=== PATIENT | female | born 1950 | race Caucasian/White ===

== ENCOUNTER 2017-02-24 12:38 | Emergency (ER) | payer MEDICARE ==
[2017-02-24] MEDS ORDERED: NORMAL SALINE 1000 ML 1,000 ML IV ONE ×2 (13:15→16:02)
--- NOTE | 2017-02-24 13:17 | ER Document Report ---
ED Medical Screen (RME) - General Chief Complaint: Flank Pain Stated Complaint: RIGHT SIDE PAIN Time Seen by Provider: 02/24/17 13:15 Notes: Patient presents with several days of severe right-sided flank and right upper quadrant abdominal pain. She states the pain is also in the right lower lateral chest. She has had some cough and shortness of breath. She is not a smoker. She has had no vomiting or diarrhea but has had decreased appetite. She has had a tubal ligation and a hysterectomy. She states that she had a fever of 104 at home. TRAVEL OUTSIDE OF THE [place] IN LAST 30 DAYS: No - Related Data Allergies/Adverse Reactions: No Known Allergies Allergy (Unverified 02/24/17 13:09) Past Medical History Renal/ Medical History: Denies: Hx Peritoneal Dialysis Physical Exam - Vital signs Vitals: Temp Pulse Resp BP Pulse Ox 98.9 F 145 H 24 H 116/81 93 02/24/17 13:05 02/24/17 13:05 02/24/17 13:05 02/24/17 13:05 02/24/17 13:05 Course - Vital Signs Vital signs: Temp Pulse Resp BP Pulse Ox 98.9 F 145 H 24 H 116/81 93 02/24/17 13:05 02/24/17 13:05 02/24/17 13:05 02/24/17 13:05 02/24/17 13:05
--- NOTE | 2017-02-24 14:15 | ER Document Report ---
ED GI/ - General Chief Complaint: Flank Pain Stated Complaint: RIGHT SIDE PAIN Time Seen by Provider: 02/24/17 13:15 Notes: The patient is a 66-year-old female who presents with 2 days of right flank pain and right upper quadrant abdominal pain. She is also having painful urination and fever up to 103 at home. She denies chest pain, shortness of breath, cough, rash, nausea, vomiting, diarrhea, constipation or hematuria. TRAVEL OUTSIDE OF THE [place] IN LAST 30 DAYS: No - Related Data Allergies/Adverse Reactions: No Known Allergies Allergy (Unverified 02/24/17 13:09) Past Medical History - General Information source: Patient - Social History Smoking Status: Unknown if Ever Smoked Family History: Reviewed & Not Pertinent Patient has suicidal ideation: No Patient has homicidal ideation: No Renal/ Medical History: Denies: Hx Peritoneal Dialysis Review of Systems - Review of Systems Notes: REVIEW OF SYSTEMS: CONSTITUTIONAL: +fevers, -chills EENT: -eye pain, -difficulty swallowing, -nasal congestion CARDIOVASCULAR: -chest pain, -syncope. RESPIRATORY: -cough, -SOB GASTROINTESTINAL: +RUQ abdominal pain, -nausea, -vomiting, -diarrhea GENITOURINARY: +dysuria, -hematuria MUSCULOSKELETAL: +right flank pain, -neck pain SKIN: -rash or skin lesions. HEMATOLOGIC: -easy bruising or bleeding. LYMPHATIC: -swollen, enlarged glands. NEUROLOGICAL: -altered mental status or loss of consciousness, -headache, - neurologic symptoms PSYCHIATRIC: -anxiety, -depression. ALL OTHER SYSTEMS REVIEWED AND NEGATIVE. Physical Exam - Vital signs Vitals: Temp Pulse Resp BP Pulse Ox 98.9 F 145 H 24 H 116/81 93 02/24/17 13:05 02/24/17 13:05 02/24/17 13:05 02/24/17 13:05 02/24/17 13:05 - Notes Notes: PHYSICAL EXAMINATION: GENERAL: Well-appearing, well-nourished and in no acute distress. HEAD: Atraumatic, normocephalic. EYES: Pupils equal round and reactive to light, extraocular movements intact, sclera anicteric, conjunctiva are normal. ENT: nares patent, oropharynx clear without exudates. Moist mucous membranes. NECK: Normal range of motion, supple without lymphadenopathy LUNGS: Breath sounds clear to auscultation bilaterally and equal. No wheezes rales or rhonchi. HEART: Tachycardia. Regular rhythm. ABDOMEN: Soft, mild RUQ tenderness, normoactive bowel sounds. No guarding, no rebound. No masses appreciated. BACK: Right CVA tenderness. EXTREMITIES: Normal range of motion, no pitting or edema. No cyanosis. NEUROLOGICAL: Cranial nerves grossly intact. Normal speech, normal gait. Normal sensory and motor exams. PSYCH: Normal mood, normal affect. SKIN: Warm, Dry, normal turgor, no rashes or lesions noted. Course - Re-evaluation Re-evalutation: 02/24/17 15:47 Pt has evidence of pyelonephritis and has RUQ tenderness. US shows dilation of the CBD and a positive sonographic Bingham sign. Spoke to Dr. Ashton and he will be down to evaluate patient. 02/24/17 16:00: Dr. Ashton evaluated patient and does not suspect gallbladder disease. Patient has normal LFTs. Suspect that her symptoms are more related to the pyelonephritis. After antibiotics, pain control and IV fluids, patient feels much better and her heart rate improved to the 90s. Lactate is normal. Offered patient admission for continued IV antibiotics, but she feels much better and is requesting discharge. Will send home with Keflex, pain control, nausea control and very strict return precautions. She understands. - Vital Signs Vital signs: Temp Pulse Resp BP Pulse Ox 98.9 F 145 H 16 98/62 L 94 02/24/17 13:05 02/24/17 13:05 02/24/17 19:00 02/24/17 18:01 02/24/17 18:01 - Laboratory Result Diagrams: 02/24/17 14:09 02/24/17 14:09 Laboratory results interpreted by me: 02/24/17 02/24/17 02/24/17 13:50 14:09 14:09 WBC 13.2 H RDW 14.3 H Seg Neuts % (Manual) 82 H Band Neutrophils % 2 L Lymphocytes % (Manual) 6 L Abs Neuts (Manual) 11.1 H Sodium 134.9 L Potassium 3.3 L BUN 37 H Est GFR ( Amer) 52 L Est GFR (Non-Af Amer) 43 L Glucose 121 H Albumin 3.3 L Urine Protein 30 H Urine Blood SMALL H Urine Nitrite POSITIVE H Ur Leukocyte Esterase LARGE H - Diagnostic Test Radiology reviewed: Image reviewed, Reports reviewed Radiology results interpreted by me: SHANTAL US: 1. There is dilatation of the common bile duct and prominence of the distal pancreatic duct within the head of the pancreas. There does not appear to be significant intrahepatic ductal dilatation. Correlate for biliary obstruction. 2. There is a positive sonographic Bingham sign, but there are no gallstones in the is no thickening of gallbladder wall or other evidence of cholecystitis. Discharge - Discharge Clinical Impression: Pyelonephritis Condition: Stable Disposition: HOME, SELF-CARE Additional Instructions: PYELONEPHRITIS: Your evaluation shows evidence of pyelonephritis. This is an infection in the kidney. Typical symptoms are fever, pain in the flank, pain on urination, and frequent urination. Many cases of pyelonephritis can be treated at home. Hospital care may be necessary for patients who are very ill, or elderly or . Pyelonephritis is treated with antibiotics. Be sure to take all the medication as prescribed. Drink plenty of liquids (about three quarts per day) . You may take acetaminophen for fever. You should feel significantly improved within two days. You should have a recheck of your urine in about one week to insure that the infection is gone. Return for a re-examination if your symptoms worsen in any way -- such as high fever, shaking chills, severe weakness or dizziness, severe pain, or inability to pass your urine. PAIN MEDICATION INJECTION: You have received an injection of a pain medication. You should experience significant pain relief within 45 minutes. This drug is a narcotic - - it will impair your judgement, slow your reaction time and make you sleepy ( as well as relieve your pain). Narcotics also can cause nausea. You should not drive, work with machinery, or perform any task requiring mental alertness until all effects of the medication are gone -- six to eight hours. Do not take any alcohol, or sedatives, and do not take any other medication without checking with your physician. ANTINAUSEA MEDICATION: You have been given a medication to suppress nausea and vomiting. This type of medication can be given as a shot, pill, or suppository. It will usually last for many hours. Pills and shots usually last six to eight hours, suppositories last about 12 hours. For the typical illness, only one or two doses of the medication may be necessary. Mild lightheadedness may occur. This type of medicine can cause drowsiness. Do not drive or operate dangerous machinery while under its influence. Do not mix with alcohol. See your doctor at once if you have muscle spasms or tightness, or uncontrollable motions (particularly of the neck, mouth, or jaw). Persistent vomiting or severe lightheadedness should also be evaluated by the physician. ANTIBIOTIC THERAPY: You have been given an antibiotic prescription. It's important that you take all the medication, unless instructed otherwise by your physician. Failure to complete the entire course can result in relapse of your condition. Common side effects of antibiotics include nausea, intestinal cramping, or diarrhea. Women may develop vaginal yeast infections, and babies can get yeast (thrush) in the mouth following the use of antibiotics. Contact your physician if you develop significant side effects from this medication. Allergy to this antibiotic can result in hives, wheezing, faintness, or itching. If symptoms of allergy occur, stop the medication and call the doctor. ROCEPHIN: You have been given an injection of an antibiotic called Rocephin ( ceftriaxone). Sometimes the injection must be combined with antibiotic pills. For some infections, such as an uncomplicated ear infection, Rocephin provides all the antibiotic that's needed. The antibiotic will be in your body for about two days. For serious infections, we usually repeat doses of Rocephin daily. Side effects are very unusual following a shot. Women may develop vaginal yeast infections, and babies can get yeast (thrush) in the mouth following the use of antibiotics. Contact your physician if you have symptoms with this medication. Allergy to this antibiotic can result in hives, wheezing, faintness, or itching. If symptoms of allergy occur, call the doctor at once. CEPHALEXIN: The antibiotic you've been prescribed is a member of the cephalosporin class. This type of antibiotic covers a wide variety of infections, including those of the skin, lungs, and urinary tract. It's useful for staph infections. This antibiotic is slightly similar to the penicillin family. In rare cases , a person who is allergic to penicillin will also be allergic to this medication. If you have had a severe allergic reaction to penicillin, and have not taken this antibiotic since that time, notify your doctor. Antibiotics which cover many germs ("broad spectrum" antibiotics) are more likely to cause diarrhea or "yeast" infections. Women prone to vaginal yeast problems may suffer an attack after taking this antibiotic. In infants, oral thrush (white spots "stuck" on the cheek) or yeast diaper rash may result. See your doctor if these problems occur. Call at once if you develop itching, hives , shortness of breath, or lightheadedness. USE OF ACETAMINOPHEN (Tylenol): Acetaminophen may be taken for pain relief or fever control. It's much safer than aspirin, offering a wider range of "safe" dosages. It is safe during . Some brand names are Tylenol, Panadol, Datril, Anacin 3, Tempra, and Liquiprin. Acetaminophen can be repeated every four hours. The following are maximum recommended dosages: >89 pounds or adults 650 mg to 900 mg Acetaminophen can be repeated every four hours. Maximum dose not to exceed 4000 mg a day. ORAL NARCOTIC MEDICATION: You have been given a prescription for pain control. This medication is a narcotic. It's best taken with food, as nausea can result if taken on an empty stomach. Don't operate machinery or drive within six hours of taking this medication. Do not combine this medicine with alcohol, or with any medication which can cause sedation (such as cold tablets or sleeping pills) unless you get permission from the physician. Narcotics tend to cause constipation. If possible, drink plenty of fluids and eat a diet high in fiber and fruits. Please be aware that prescription narcotics also have the potential for abuse. People become addicted to these medications because of the general sense of wellbeing that they induce. This feeling along with a significant reduction in tension, anxiety, and aggression provides a stimulating seductive quality to these drugs. Once your pain is under control, we encourage you to discard your unused narcotics. FOLLOW-UP CARE: If you have been referred to a physician for follow-up care, call the physician s office for an appointment as you were instructed or within the next two days. If you experience worsening or a significant change in your symptoms, notify the physician immediately or return to the Emergency Department at any time for re-evaluation. Prescriptions: Cephalexin Monohydrate [Keflex 500 mg Capsule] 500 mg PO TID 10 Days capsule Hydrocodone/Acetaminophen [[place] 5-325 mg Tablet] 1 tab PO Q6H PRN #15 tablet PRN Reason: Ondansetron [Zofran Odt 4 mg Tablet] 1 - 2 tab PO Q4H PRN #15 tab.rapdis PRN Reason: For Nausea/Vomiting
[2017-02-24 14:24] LABS: APPEARANCE,URINE SLIGHTLY-CLOUDY; BILIRUBIN,URINE NEGATIVE (NEGATIVE); GLUCOSE, URINE NEGATIVE (NEGATIVE); KETONES,URINE NEGATIVE (NEGATIVE); LEUKOCYTE ESTERASE,URINE LARGE (NEGATIVE); NITRITE,URINE POSITIVE (NEGATIVE); PROTEIN,URINE 30 mg/dL (NEGATIVE); URINE SPECIFIC GRAVITY 1.008; UROBILINOGEN,URINE NEGATIVE mg/dL (<2.0)
[2017-02-24] MEDS ORDERED: MORPHINE SULFATE 10 MG/ML INJ IV ONE ×2 (14:25→16:02)
[2017-02-24 14:31] LABS: HEMATOCRIT 40.4 % (36.0-47.0); HEMOGLOBIN 13.9 g/dL (12.0-15.5); HGB HCT DIFFERENCE 1.3; MEAN CORPUSCULAR HEMOGLOBIN 30.3 pg (27.0-33.4); MEAN CORPUSCULAR HGB CONC 34.4 g/dL (32.0-36.0); MEAN CORPUSCULAR VOLUME 88 fl (80-97); RED BLOOD COUNT 4.59 10^6/uL (3.72-5.28); RED CELL DISTRIBUTION WIDTH 14.3 % (11.5-14.0); WHITE BLOOD COUNT 13.2 10^3/uL (4.0-10.5)
[2017-02-24 14:32] LABS: PROTHROMBIN TIME 15.2 SEC (11.4-15.4)
[2017-02-24] MEDS ORDERED: CEFTRIAXONE 1 GM/D5W RTU 1 GM/50 ML RTUPB IV ONE (14:40)
[2017-02-24 14:46] LABS: ALANINE AMINOTRANSFERASE 27 U/L (9-52); ALBUMIN 3.3 g/dL (3.5-5.0); ALKALINE PHOSPHATASE 99 U/L (38-126); ANION GAP 12 (5-19); ASPARTATE AMINO TRANSFERASE 23 U/L (14-36); BILIRUBIN,DIRECT 0.4 mg/dL (0.0-0.4); BILIRUBIN,TOTAL 0.8 mg/dL (0.2-1.3); BLOOD UREA NITROGEN 37 mg/dL (7-20); CALCIUM 9.5 mg/dL (8.4-10.2); CARBON DIOXIDE 25 mmol/L (22-30); CHLORIDE 98 mmol/L (98-107); CREATININE RESULT 1.25 mg/dL (0.52-1.25); GLUCOSE 121 mg/dL (75-110); POTASSIUM 3.3 mmol/L (3.6-5.0); SODIUM 134.9 mmol/L (137-145); TOTAL PROTEIN 6.5 g/dL (6.3-8.2)
[2017-02-24 15:03] LABS: BAND NEUTROPHILS % (MANUAL) 2 % (3-5); BASOPHILS % (MANUAL) 0 % (0-2); EOSINOPHILS % (MANUAL) 0 % (0-6); LYMPHOCYTES % (MANUAL) 6 % (13-45); TOTAL CELLS COUNTED 100
[2017-02-24 15:04] LABS: ANISOCYTOSIS SLIGHT; TOXIC GRANULATION 1+
--- NOTE | 2017-02-24 15:24 | RADIOLOGY REPORT (SQ) ---
EXAM DESCRIPTION: U/S ABDOMEN LIMITED W/O DOP COMPLETED DATE/TIME: 02/24/2017 3:07 pm REASON FOR STUDY: RUQ pain COMPARISON: None. TECHNIQUE: Dynamic and static grayscale images acquired of the abdomen and recorded on PACS. Additio nal selected color Doppler and spectral images recorded. LIMITATIONS: None. FINDINGS: PANCREAS: No masses. The pancreatic duct within the head of the pancreas measures 3.1 mm which is in the normal range. LIVER: 13.7 cm. Normal echotexture. LIVER VASCULATURE: Normal directional flow of the main portal vein and hepatic veins. GALLBLADDER: No stones. Normal wall thickness. No pericholecystic fluid. ULTRASOUND-DETECTED BINGHAM'S SIGN: Positive. INTRAHEPATIC DUCTS AND COMMON DUCT: Common bile duct is dilated at 9.5 mm. There is not appear to be significant dilatation of the intrahepatic ducts. INFERIOR VENA CAVA: Normal flow. AORTA: No aneurysm. RIGHT KIDNEY: Normal size, 9.9 cm. Normal echogenicity. No solid or suspicious masses. No hydronephr osis. No calcifications. PERITONEAL AND RIGHT PLEURAL SPACE: No ascites or effusions. OTHER: No other significant findings. IMPRESSION: 1. There is dilatation of the common bile duct and prominence of the distal pancreatic duct within the head of the pancreas. There does not appear to be significant intrahepatic ductal di latation. Correlate for biliary obstruction. 2. There is a positive sonographic Bingham sign, but there are no gallstones in the is no thickening of gallbladder wall or other evidence of cholecystitis. TECHNICAL DOCUMENTATION: JOB ID: [id number] [employer]- All Rights Reserved
--- NOTE | 2017-02-24 15:40 | RADIOLOGY REPORT (SQ) ---
EXAM DESCRIPTION: CHEST PA/LAT COMPLETED DATE/TIME: 02/24/2017 3:31 pm REASON FOR STUDY: sob/fever/cough COMPARISON: 09/21/2013 EXAM PARAMETERS: NUMBER OF VIEWS: two views TECHNIQUE: Digital Frontal and Lateral radiographic views of the chest acquired. RADIATION DOSE: NA LIMITATIONS: none FINDINGS: LUNGS AND PLEURA: No opacities, masses or pneumothorax. No pleural effusion. MEDIASTINUM AND HILAR STRUCTURES: No masses or contour abnormalities. HEART AND VASCULAR STRUCTURES: Heart normal size. No evidence for failure. BONES: No acute findings. HARDWARE: None in the chest. OTHER: No other significant finding. IMPRESSION: NO SIGNIFICANT RADIOGRAPHIC FINDING IN THE CHEST. TECHNICAL DOCUMENTATION: JOB ID: [id number] [employer]- All Rights Reserved
[2017-02-24] MEDS ORDERED: KETOROLAC TROMETHAMINE INJ/PF 30 MG/1 ML SDV IV ONE (16:02)
--- NOTE | 2017-02-24 17:08 | PDOC CONSULTATION ---
Consultation Consult Date: 02/24/17 Attending physician:: LILLIE PHILIP Consult reason:: Gallbladder disease History of Present Illness History of Present Illness: DRAGAN SALCIDO is a 66 year old female brought to the emergency department by the patient's son because of her progressive history of weakness, decreased p.o. intake, decreased urine output all following a thoracic surgery last week at [facility]. History provided patient. Family member present at bedside at this time. Patient denies mayito dysuria, but did feel like she was having a urinary tract infection she has had multiple in the past. She has never had kidney stones or pyelonephritis. She has never been hospitalized for this. She took her temperature 3 days ago and it was 104 F. W/U included U/ Past Medical History Cardiac Medical History: Reports: Hyperlipidema, Hypertension Renal/ Medical History: Reports: Other - Hx of UTI Psychiatric Medical History: Reports: None Past Surgical History Past Surgical History: Reports: Tubal Ligation, Other - S/p KENISHA, BSO Social History Smoking Status: Never Smoker Frequency of Alcohol Use: None Family History Parental Family History Reviewed: Yes Children Family History Reviewed: Yes Sibling(s) Family History Reviewed.: Yes Medication/Allergy Allergies/Adverse Reactions: No Known Allergies Allergy (Unverified 02/24/17 13:09) Review of Systems Constitutional: PRESENT: night sweats, weakness Eyes: ABSENT: visual disturbances Ears: ABSENT: hearing changes Gastrointestinal: PRESENT: other Physical Exam Vital Signs: Temp Pulse Resp BP Pulse Ox 98.9 F 145 H 14 114/65 94 02/24/17 13:05 02/24/17 13:05 02/24/17 15:39 02/24/17 15:39 02/24/17 15:39 Intake & Output 02/23/17 02/24/17 02/25/17 06:59 06:59 06:59 Weight 57.8 kg General appearance: PRESENT: other - Patient very fatigued Head exam: PRESENT: normocephalic - and intermittently confused Eye exam: PRESENT: EOMI Mouth exam: PRESENT: dry mucosa Neck exam: PRESENT: full ROM Respiratory exam: PRESENT: clear to auscultation ching Cardiovascular exam: PRESENT: tachycardia Pulses: PRESENT: normal carotid pulses, +1 pedal pulses bilateral Vascular exam: PRESENT: other - Slightly diminished cap refill GI/Abdominal exam: PRESENT: other - Abdomen is soft no peritoneal signs no rigidity some subcostal tenderness right and left sides Torso Front/Back Image: 1 - Strangely tender right posterior flank costovertebral angle region Rectal exam: PRESENT: deferred Musculoskeletal exam: PRESENT: ambulatory Neurological exam: PRESENT: oriented to person, oriented to place, other - Intermittently confused Psychiatric exam: PRESENT: anxious Results Laboratory Results: 02/24/17 14:09 02/24/17 14:09 02/24/17 02/24/17 02/24/17 13:50 14:09 14:09 WBC 13.2 H RBC 4.59 Hgb 13.9 Hct 40.4 MCV 88 MCH 30.3 MCHC 34.4 RDW 14.3 H Plt Count 164 Seg Neutrophils % Not Reportable Lymphocytes % Not Reportable Monocytes % Not Reportable Eosinophils % Not Reportable Basophils % Not Reportable Absolute Neutrophils Not Reportable Absolute Lymphocytes Not Reportable Absolute Monocytes Not Reportable Absolute Eosinophils Not Reportable Absolute Basophils Not Reportable Sodium 134.9 L Potassium 3.3 L Chloride 98 Carbon Dioxide 25 Anion Gap 12 BUN 37 H Creatinine 1.25 Est GFR ( Amer) 52 L Est GFR (Non-Af Amer) 43 L Glucose 121 H Lactic Acid Calcium 9.5 Total Bilirubin 0.8 AST 23 ALT 27 Alkaline Phosphatase 99 Total Protein 6.5 Albumin 3.3 L Urine Color YELLOW Urine Appearance SLIGHTLY-CLOUDY Urine pH 5.0 Ur Specific [place] 1.008 Urine Protein 30 H Urine Glucose (UA) NEGATIVE Urine Ketones NEGATIVE Urine Blood SMALL H Urine Nitrite POSITIVE H Ur Leukocyte Esterase LARGE H Urine WBC (Auto) >182 Urine RBC (Auto) 1 02/24/17 14:09 WBC RBC Hgb Hct MCV MCH MCHC RDW Plt Count Seg Neutrophils % Lymphocytes % Monocytes % Eosinophils % Basophils % Absolute Neutrophils Absolute Lymphocytes Absolute Monocytes Absolute Eosinophils Absolute Basophils Sodium Potassium Chloride Carbon Dioxide Anion Gap BUN Creatinine Est GFR ( Amer) Est GFR (Non-Af Amer) Glucose Lactic Acid 1.6 Calcium Total Bilirubin AST ALT Alkaline Phosphatase Total Protein Albumin Urine Color Urine Appearance Urine pH Ur Specific [place] Urine Protein Urine Glucose (UA) Urine Ketones Urine Blood Urine Nitrite Ur Leukocyte Esterase Urine WBC (Auto) Urine RBC (Auto) Impressions: Chest X-Ray 02/24/17 13:15 IMPRESSION: NO SIGNIFICANT RADIOGRAPHIC FINDING IN THE CHEST. Abdomen Ultrasound 02/24/17 14:15 IMPRESSION: 1. There is dilatation of the common bile duct and prominence of the distal pancreatic duct within the head of the pancreas. There does not appear to be significant intrahepatic ductal dilatation. Correlate for biliary obstruction. 2. There is a positive sonographic Bingham sign, but there are no gallstones in the is no thickening of gallbladder wall or other evidence of cholecystitis. Assessment & Plan - Diagnosis (1) Urinary tract infection Qualifiers: Urinary tract infection type: acute pyelonephritis Qualified Code(s): N10 - Acute pyelonephritis Is this a current diagnosis for this admission?: Yes Plan: Clinically, serologically the patient has evidence of urinary tract infection since of urosepsis and probable pyelonephritis. She has some tenderness on ultrasonography of the right upper quadrant, gallbladder itself appears to be normal thickness no pericholecystic fluid and no gallstones. Patient states she was told she had a gallbladder problem in the past but denies ever having had a formal gallbladder evaluation; she denies history of pancreatitis. Her liver function studies are within normal limits. The common bile duct interpretation of 9.5 mm is slightly enlarged but in the context of the immediate setting, I do not believe the patient is suffering from cholecystitis , or choledocholithiasis Recommendations: 1. Continue fluid and antibiotic resuscitation: Suggested admission to the medicine service 2. No further evaluation of the gallbladder at this time; reconsult general surgery if patient's clinical condition changes - Time Time Spent: 30 to 50 Minutes Critical Time spent with patient: 15-24 minutes Medications reviewed and adjusted accordingly: Yes Anticipated discharge: Home - Inpatient Certification Based on my medical assessment, after consideration of the patient's comorbidities, presenting symptoms, or acuity I expect that the services needed warrant INPATIENT care.: Yes I certify that my determination is in accordance with my understanding of Medicare's requirements for reasonable and necessary INPATIENT services [42 CFR 412.3e].: Yes Medical Necessity: Need For IV Fluids, Need for Pain Control, Need for IV Antibiotics
--- NOTE | 2017-02-24 18:19 | EKG REPORT ---
SEVERITY:- BORDERLINE ECG - SINUS TACHYCARDIA BORDERLINE INFERIOR Q WAVES MINIMAL ST DEPRESSION, LATERAL LEADS : Confirmed by: Raudel Haynes MD 24-Feb-2017 18:17:47
[2017-02-24 18:21] VITALS: BP 98/62
== END 2017-02-24 19:15 | disposition home or self-care (01) ==
LOC: ER 12:38
DX: N10 Acute pyelonephritis (principal); K83.8 Other specified diseases of biliary tract; R10.11 Right upper quadrant pain; R50.9 Fever, unspecified; R30.0 Dysuria; R00.0 Tachycardia, unspecified
CPT/HCPCS: 93005; 96376; 99285; 96361; 96375; 96365; 36415; 87086; 85025; 85610; 87088; 80053; 81001; 87186; 83605; 71020; 76705; 93010; J1885; J2270; J7030; J0696

== ENCOUNTER 2017-02-25 20:14 | Emergency (ER) | payer MEDICARE ==
[2017-02-25 20:33] VITALS: BP 116/67
[2017-02-25] MEDS ORDERED: NORMAL SALINE 1000 ML 1,000 ML IV ONE (20:46)
[2017-02-25] MEDS ORDERED: CEFTRIAXONE 1 GM/D5W RTU 1 GM/50 ML RTUPB IV ONE (20:47)
--- NOTE | 2017-02-25 20:49 | ER Document Report ---
ED Medical Screen (RME) - General Chief Complaint: Abdominal Pain >50 Stated Complaint: BODY PAIN Time Seen by Provider: 02/25/17 20:44 Notes: Please see yesterday's note. Patient was seen here for weakness and diagnosed with urinary tract infection. She was offered admission but requested to be discharged home. Today at home patient had an episode of severe weakness and fell to the ground. She states that she has been having a steady decline throughout the day of decreased energy and appetite as well as this generalized weakness. TRAVEL OUTSIDE OF THE [place] IN LAST 30 DAYS: No - Related Data Allergies/Adverse Reactions: No Known Allergies Allergy (Verified 02/25/17 20:30) Past Medical History - Past Medical History Cardiac Medical History: Reports: Hx Hypercholesterolemia, Hx Hypertension Renal/ Medical History: Denies: Hx Peritoneal Dialysis Past Surgical History: Reports: Hx Tubal Ligation, Other - S/p KENISHA, BSO Physical Exam - Vital signs Vitals: Temp Pulse Resp BP Pulse Ox 99.6 F 100 18 116/67 95 02/25/17 20:31 02/25/17 20:31 02/25/17 20:31 02/25/17 20:31 02/25/17 20:31 Course - Vital Signs Vital signs: Temp Pulse Resp BP Pulse Ox 99.6 F 100 18 116/67 95 02/25/17 20:31 02/25/17 20:31 02/25/17 20:31 02/25/17 20:31 02/25/17 20:31
[2017-02-25 21:30] LABS: VENOUS BLOOD BASE EXCESS 1.7 mmol/L; VENOUS BLOOD HCO3 27.1 mmol/L (20-32); VENOUS BLOOD PCO2 45.4 mmHg (35-63); VENOUS BLOOD PH 7.39 (7.30-7.42)
[2017-02-25 21:37] LABS: ABSOLUTE EOSINOPHILS # (AUTO) 0.1 10^3/uL (0.0-0.6); ABSOLUTE MONOCYTES (AUTO) 0.9 10^3/uL (0.1-1.4); ABSOLUTE NEUT (AUTO) 7.5 10^3/uL (1.7-8.2); BASOPHILS % (AUTO) 0.1 % (0-2); EOSINOPHILS % (AUTO) 1.1 % (0-6); HEMOGLOBIN 12.1 g/dL (12.0-15.5); HGB HCT DIFFERENCE 1.3; MEAN CORPUSCULAR HEMOGLOBIN 30.7 pg (27.0-33.4); MEAN CORPUSCULAR HGB CONC 34.5 g/dL (32.0-36.0); MEAN CORPUSCULAR VOLUME 89 fl (80-97); MONOCYTES % (AUTO) 9.9 % (3-13); RED BLOOD COUNT 3.93 10^6/uL (3.72-5.28); RED CELL DISTRIBUTION WIDTH 14.1 % (11.5-14.0); SEGMENTED NEUTROPHILS % (AUTO) 78.9 % (42-78); WHITE BLOOD COUNT 9.5 10^3/uL (4.0-10.5)
[2017-02-25 21:38] LABS: PROTHROMBIN TIME 13.6 SEC (11.4-15.4)
[2017-02-25] MEDS ORDERED: LIDOCAINE 2% VISCOUS SOLN 20 ML UDCUP PO ONE (23:14)
[2017-02-25] MEDS ORDERED: METOCLOPRAMIDE HCL ORAL SOLN 10 MG/10 ML UDCUP PO ONE (23:14)
[2017-02-25] MEDS ORDERED: CEFTRIAXONE INJ 1000 MG VIAL IV ONE (23:14)
[2017-02-25] MEDS ORDERED: MAG HYDROX/AL HYDROX/SIMETH SUSP 30 ML UDCUP PO ONE (23:14)
[2017-02-25] MEDS ORDERED: NORMAL SALINE 500 ML IV ONE (23:14)
[2017-02-25 23:20] LABS: APPEARANCE,URINE CLEAR; BILIRUBIN,URINE NEGATIVE (NEGATIVE); GLUCOSE, URINE NEGATIVE (NEGATIVE); KETONES,URINE NEGATIVE (NEGATIVE); LEUKOCYTE ESTERASE,URINE SMALL (NEGATIVE); NITRITE,URINE NEGATIVE (NEGATIVE); PROTEIN,URINE NEGATIVE (NEGATIVE); URINE SPECIFIC GRAVITY 1.008
--- NOTE | 2017-02-26 00:01 | ER Document Report ---
ED General - General Chief Complaint: Abdominal Pain >50 Stated Complaint: BODY PAIN Time Seen by Provider: 02/25/17 20:44 Notes: Patient is a 66-year-old female presents to the ER with complaint of weakness and unable to get up and move around. She was seen yesterday. At that time she had a fever at home of 103. She was tachycardic in the 140s when she arrived yesterday. Urinalysis showed evidence of pyelonephritis. She had right back and right upper quadrant abdominal pain that time therefore she had an ultrasound performed which showed some common bile duct dilatation therefore surgery was consulted. Surgery consultation suggest that her pain was related to pyelonephritis and not her gallbladder. Patient was offered admission but she decides to go home. She has been taking antibiotics but says that she feels very weak and unsteady on her feet and has fallen a few times. She has therefore returned. She says her pain is still in the back and going into the right upper quadrant across her upper abdomen. She denies any dysuria. She has no other complaints at this time. Urine culture from yesterday does show gram-negative rods. TRAVEL OUTSIDE OF THE [place] IN LAST 30 DAYS: No - Related Data Allergies/Adverse Reactions: No Known Allergies Allergy (Verified 02/25/17 20:30) Past Medical History - Social History Smoking Status: Unknown if Ever Smoked Frequency of alcohol use: None Drug Abuse: None Family History: Reviewed & Not Pertinent Patient has suicidal ideation: No Patient has homicidal ideation: No - Past Medical History Cardiac Medical History: Reports: Hx Hypercholesterolemia, Hx Hypertension Renal/ Medical History: Denies: Hx Peritoneal Dialysis Past Surgical History: Reports: Hx Tubal Ligation, Other - S/p KENISHA, BSO Review of Systems - Review of Systems Notes: My Normal Review Basic REVIEW OF SYSTEMS: CONSTITUTIONAL : Denies fever, chills, or sweats. Denies recent illness. EENT: Denies eye, ear, throat, or mouth pain or symptoms. Denies nasal or sinus congestion. CARDIOVASCULAR: Denies chest pain. RESPIRATORY: Denies cough, cold, or chest congestion. Denies shortness of breath, difficulty breathing, or wheezing. GASTROINTESTINAL: Right upper quadrant and upper abdominal pain. Nausea. GENITOURINARY: No dysuria. MUSCULOSKELETAL: Some right-sided back pain. SKIN: Denies rash or skin lesions. NEUROLOGICAL: Denies altered mental status or loss of consciousness. Denies headache. Denies weakness or paralysis or loss of use of either side. Denies problems with gait or speech. Denies sensory or motor loss. ALL OTHER SYSTEMS REVIEWED AND NEGATIVE. Physical Exam - Vital signs Vitals: Temp Pulse Resp BP Pulse Ox 99.6 F 100 18 116/67 95 02/25/17 20:31 02/25/17 20:31 02/25/17 20:31 02/25/17 20:31 02/25/17 20:31 - Notes Notes: General Appearance: Well nourished, alert, cooperative, no acute distress, no obvious discomfort. Weak appearing. Vitals: reviewed, See vital signs table. Head: no swelling or tenderness to the head Eyes: PERRL, EOMI, Conjuctiva clear Mouth: No decreasd moisture Lungs: No wheezing, No rales, No rhonci, No accessory muscle use, good air exchange bilaterally. Heart: Normal rate, Regular rythm, No murmur, no rub Abdomen: Normal BS, soft, No rigidity, right upper quadrant abdominal pain. , No guarding, no rebound, no abdominal masses, no organomegaly Back: Some tenderness to palpation on the right side of the back. Extremities: strength 5/5 in all extremities, good pulses in all extremities, no swelling or tenderness in the extremities, no edema. Skin: warm, dry, appropriate color, no rash Neuro: speech clear, oriented x 3, normal affect, responds appropriately to questions. Course - Re-evaluation Re-evalutation: 02/26/17 06:15 On reevaluation patient is feeling improved. I talked to her and her family at length. I informed her that her laboratory evaluation is much improved in comparison to yesterday. Her vital signs are stable. I informed her that if she still feels very unwell then I am more than happy to talk to the hospitalist about possible admission. I told her that the other option is that we can discharge home with continued antibiotic treatment however prefer that she states the family member if she does go home and that she return to ER medially if she has any pain, fevers, or feels that she is getting worse again. Patient said she prefers to go home and her sons in the room and she says she will stay with her son. I informed her that he needs follow-up with either her doctor or us in 2-3 days for reevaluation. Patient agrees with plan will be discharged home. Dictation of this chart was performed using voice recognition software; therefore, there may be some unintended grammatical errors. - Vital Signs Vital signs: Temp Pulse Resp BP Pulse Ox 99.6 F 100 18 116/67 95 02/25/17 20:31 02/25/17 20:31 02/25/17 20:31 02/25/17 20:31 02/25/17 20:31 - Laboratory Result Diagrams: 02/25/17 20:06 02/25/17 23:30 Laboratory results interpreted by me: 02/25/17 02/25/17 02/25/17 20:06 22:30 23:30 Hct 35.0 L RDW 14.1 H Seg Neutrophils % 78.9 H Lymphocytes % 10.0 L Potassium 3.5 L BUN 25 H Est GFR (Non-Af Amer) 55 L Glucose 72 L Direct Bilirubin 0.5 H Total Protein 4.9 L Albumin 2.5 L Urine Urobilinogen 4.0 H Ur Leukocyte Esterase SMALL H - EKG Interpretation by Me Additional EKG results interpreted by me: 02/26/17 00:01 EKG is reviewed and interpreted by me. EKG shows normal sinus rhythm with rate of [address] segment elevation or depression. No ischemic T-wave inversions. OK interval, QRS duration, QTc intervals are within normal range. Old EKG for comparison is from February 24, 2017. Discharge - Discharge Clinical Impression: Urinary tract infection Qualifiers: Urinary tract infection type: site unspecified Hematuria presence: without hematuria Qualified Code(s): N39.0 - Urinary tract infection, site not specified Condition: Good Disposition: HOME, SELF-CARE Additional Instructions: Your laboratory test results are much improved today in comparison to yesterday. Despite this, you should still return to the ER for reevaluation in 1-2 days if you are not feeling improvement. Please follow-up with your doctor this week for reevaluation. Please do not hesitate to return to the ER immediately if you feel that you are worsening, if you have recurrent fevers, vomiting, worsening pain, or if you feel that you are worsening in any way. Referrals: SHILPI ANN MD [Primary Care Provider] - 02/28/17
[2017-02-26 00:23] LABS: ALANINE AMINOTRANSFERASE 42 U/L (9-52); ALBUMIN 2.5 g/dL (3.5-5.0); ALKALINE PHOSPHATASE 104 U/L (38-126); ANION GAP 11 (5-19); ASPARTATE AMINO TRANSFERASE 31 U/L (14-36); BILIRUBIN,DIRECT 0.5 mg/dL (0.0-0.4); BILIRUBIN,TOTAL 0.5 mg/dL (0.2-1.3); BLOOD UREA NITROGEN 25 mg/dL (7-20); CALCIUM 8.5 mg/dL (8.4-10.2); CARBON DIOXIDE 26 mmol/L (22-30); CHLORIDE 102 mmol/L (98-107); GLUCOSE 72 mg/dL (75-110); POTASSIUM 3.5 mmol/L (3.6-5.0); SODIUM 138.5 mmol/L (137-145); TOTAL PROTEIN 4.9 g/dL (6.3-8.2)
[2017-02-26] MEDS ORDERED: POTASSIUM CHLORIDE 10 MEQ TABLET.SA PO ONE (00:42)
--- NOTE | 2017-02-26 08:09 | EKG REPORT ---
SEVERITY:- NORMAL ECG - SINUS RHYTHM : Confirmed by: Raudel Haynes MD 26-Feb-2017 08:09:02
== END 2017-02-26 01:07 | disposition home or self-care (01) ==
LOC: ER 20:14
DX: N39.0 Urinary tract infection, site not specified (principal); R10.9 Unspecified abdominal pain; R52 Pain, unspecified; R53.1 Weakness; R00.0 Tachycardia, unspecified
CPT/HCPCS: 93005; 99285; 96361; 96365; 36415; 87040; 87086; 85025; 85610; 80053; 81001; 84484; 82803; 83605; 93010; J3490; A9270 ×2; J0696 ×2; J7030; J7040

== ENCOUNTER → 2019-07-22 | Outpatient (CLI) | payer MEDICARE ==
[2019-07-22 16:45] LABS: ABSOLUTE EOSINOPHILS # (AUTO) 0.2 10^3/uL (0.0-0.6); ABSOLUTE LYMPHOCYTES (AUTO) 1.3 10^3/uL (0.5-4.7); ABSOLUTE MONOCYTES (AUTO) 0.4 10^3/uL (0.1-1.4); ABSOLUTE NEUT (AUTO) 4.2 10^3/uL (1.7-8.2); BASOPHILS % (AUTO) 0.8 % (0-2); EOSINOPHILS % (AUTO) 3.9 % (0-6); HEMATOCRIT 38.7 % (36.0-47.0); HEMOGLOBIN 13.6 g/dL (12.0-15.5); LYMPHOCYTES % (AUTO) 20.8 % (13-45); MEAN CORPUSCULAR HGB CONC 35.2 g/dL (32.0-36.0); MEAN CORPUSCULAR VOLUME 88 fl (80-97); MONOCYTES % (AUTO) 6.6 % (3-13); PLATELET COUNT 149 10^3/uL (150-450); RED CELL DISTRIBUTION WIDTH 13.8 % (11.5-14.0); SEGMENTED NEUTROPHILS % (AUTO) 67.9 % (42-78); TOTAL CELLS COUNTED % (AUTO) 100 %; WHITE BLOOD COUNT 6.2 10^3/uL (4.0-10.5)
[2019-07-22 16:52] LABS: ANION GAP 7 (5-19)
[2019-07-22 16:59] LABS: ALBUMIN 3.8 g/dL (3.5-5.0); ALKALINE PHOSPHATASE 93 U/L (38-126); ASPARTATE AMINO TRANSFERASE 27 U/L (14-36); BILIRUBIN,TOTAL 0.5 mg/dL (0.2-1.3); BLOOD UREA NITROGEN 12 mg/dL (7-20); CALCIUM 9.1 mg/dL (8.4-10.2); CARBON DIOXIDE 31 mmol/L (22-30); CHLORIDE 104 mmol/L (98-107); GLUCOSE 81 mg/dL (75-110); TOTAL PROTEIN 6.4 g/dL (6.3-8.2)
== END ==
LOC: LAB 15:59
PROVIDERS: ATTEND Physician Assistant
DX: I10 Essential (primary) hypertension (principal); Z11.2 Encounter for screening for other bacterial diseases
CPT/HCPCS: 36415; 80053; 85025; 87070